=== PATIENT | male | born 1980 | race African-American/Black ===

== ENCOUNTER 2016-07-12 20:23 | Emergency (ER) | payer BC | END 2016-07-12 20:42 | disposition left against medical advice (07) | LOC: UCEAST 20:23 | DX: Z11.3 Encounter for screening for infections with a predominantly sexual mode of transmission (principal); Z53.21 Procedure and treatment not carried out due to patient leaving prior to being seen by health care provider ==

== ENCOUNTER 2016-07-13 20:26 | Emergency (ER) | payer BC ==
[2016-07-13 21:11] VITALS: BP 145/91
--- NOTE | 2016-07-13 22:57 | UC ---
Complaint Male HPI - HPI Summary HPI Summary: The patient comes in today for: 1. Dysuria/clear discharge Onset: 4 days ago. Palliative/provocative: Urination makes it worse. Quality: Burning sensation. Region: Penis towards the tip but at times the whole length. Severity: Resting, now: 0/10 Associated symptoms: Fever: None. Last sexual encounter: July 06. Two days later, he had onset of dysuria and clear discharge. He was seen at [facility] and urine test taken for GC/ Chlamydia. He was treated with "a shot and 4 pills." Since then, the dysuria is now towards the end of the penis. The clear discharge is better. * - History of Current Complaint Chief Complaint: UCGU Stated Complaint: STD CHECK Time Seen by Provider: 07/13/16 22:36 Hx Obtained From: Patient - Allergies/Home Medications Allergies/Adverse Reactions: Allergies Allergy/AdvReac Type Severity Reaction Status Date / Time No Known Allergies Allergy Verified 07/13/16 21:12 Home Medications: Home Medications Lisinopril/HCTZ (NF) [Zestoretic (NF)] 07/13/16 [History] PMH/Surg Hx/FS Hx/Imm Hx Previously Healthy: No Endocrine History Of: Denies: Diabetes, Thyroid Disease, Hyperthyroidism, Hypothyroidism, Dyslipidemia Cardiovascular History Of: Reports: Hypertension - borderline high b/p Denies: Cardiac Disorders, Pacemaker/ICD, Myocardial Infarction, Congestive Heart Failure, Atrial Fibrillation, Deep Vein Thrombosis, Bleeding Disorders Respiratory History Of: Denies: COPD, Asthma GI/ History Of: Denies: Gastroesophageal Reflux, Ulcer, Gastrointestinal Bleed, Gall Bladder Disease, Kidney Stones, Diverticulitis, Renal Disease, Urosepsis Neurological History Of: Denies: TIA, CVA, Dementia, Seizures, Migraine Psychological History Of: Denies: Anxiety, Depression, Bipolar Disorder, Schizophrenia, Post Traumatic Stress Disorder Cancer History Of: Denies: Lung Cancer, Colorectal Cancer, Breast Cancer, Prostate Cancer, Cervical Cancer Other History Of: Negative For: HIV, Hepatitis B, Hepatitis C - Surgical History Surgical History: Yes Surgery Procedure, Year, and Place: 2009 right shoulder surgery [facility] - Family History Known Family History: Positive: Hypertension Negative: Cardiac Disease Family History: NON CONTRIBUTORY - Social History Occupation: Employed Full-time Alcohol Use: Occasionally Alcohol Amount: 2-3 DRINKS/WEKEND Substance Use Type: None Smoking Status (MU): Former Smoker Amount Used/How Often: 1 PPWEEK/ 2 YEARS Have You Smoked in the Last Year: No When Did the Patient Quit Smoking/Using Tobacco: 1999 Review of Systems Constitutional: Negative Skin: Negative Eyes: Negative ENT: Negative Respiratory: Negative Cardiovascular: Negative Gastrointestinal: Negative Genitourinary: Dysuria, Other - No recent ejactulation to check for hematospermia. All Other Systems Reviewed And Are Negative: Yes Physical Exam Triage Information Reviewed: Yes Appearance: Well-Appearing, No Pain Distress, Well-Nourished, Other: - The patient was texting during my whole history and examination. He seemed to only be 1/2 present during the exam. Vital Signs: Initial Vital Signs Temp 97.5 F 07/13/16 21:07 Pulse 91 07/13/16 21:07 Resp 12 07/13/16 21:07 BP 145/91 07/13/16 21:07 Pulse Ox 97 07/13/16 21:07 Vital Signs Reviewed: Yes Eyes: Positive: Conjunctiva Clear. Negative: Discharge ENT: Positive: Hearing grossly normal, Other: - Ears: Canal no edema or erythema.. Negative: Pharyngeal erythema, Nasal congestion, Nasal drainage, Tonsillar swelling, Tonsillar exudate Dental: Negative: Gross Decay/Caries @, Dental Fracture @ Neck: Positive: Supple, Nontender, No Lymphadenopathy. Negative: Nuchal Rigidity Respiratory: Positive: Chest non-tender, Lungs clear, No respiratory distress, No accessory muscle use. Negative: Crackles, Wheezing Cardiovascular: Positive: RRR, No Murmur Abdomen Description: Positive: Nontender, No Organomegaly, Soft Musculoskeletal: Positive: Strength Intact, ROM Intact, No Edema Neurological: Positive: Alert, Muscle Tone Normal Psychological: Positive: Age Appropriate Behavior, Consolable Skin: Negative: rashes, breakdown UC Physical Exam Vital Signs On Initial Exam: Initial Vitals Temp Pulse Resp BP Pulse Ox 97.5 F 91 12 145/91 97 07/13/16 21:07 07/13/16 21:07 07/13/16 21:07 07/13/16 21:07 07/13/16 21:07 - Genitalia Exam Male Genitalia: Circumcised, Other - Penis: Circumcised. No masses, no discharge even with milking, no lesions Scrotum: Testes down bilaterally, no masses or tenderness. Complaint Male Course/Dx - Differential Dx/Diagnosis Differential Diagnosis/HQI/PQRI: Epididymitis, Prostatitis Provider Diagnoses: urethritis (previously treated for GC/chlamydia) at [facility]. Discharge - Discharge Plan Condition: Stable Disposition: HOME Patient Education Materials: Urinary Tract Infection in Men (ED) Referrals: Shoaib Engle MD [Primary Care Provider] - If Needed Additional Instructions: If you don't continue to improve, please see your primary care provider.
== END 2016-07-13 23:43 | disposition home or self-care (01) ==
LOC: UCEAST 20:26
DX: N34.2 Other urethritis (principal); I10 Essential (primary) hypertension; Z87.891 Personal history of nicotine dependence
CPT/HCPCS: 87798; 99211; G0463

== ENCOUNTER 2018-03-04 13:20 | Emergency (ER) | payer BC ==
--- OUTSIDE RECORDS SUMMARY | 2018-03-04 13:25 | XMS REPORT | Continuity of Care Document ---
:1980 External Reference #:[id number] Author Name Jm Salcedo M.D. Address [address] [place] [address] Care Team Providers Name Role Phone Shoaib Engle MD Care Team Information Religious Education Director Unavailable Shoaib Engle MD Primary Care Physician Unavailable Payers Type Date Identification Numbers Payment Provider Subscriber Onset: 2013 Policy Number: [id number] [employer] Jona Oleary PayID: [id number] [address] [place] [address] Onset: 2007 Policy Number: [id number] [employer] Jona Oleary [address] [place] [address] Advance Directives Description No Information Available Problems Date Description Provider Status Onset: 11/29/2013 Foreign body in conjunctival sac Jm Salcedo M.D. Active Onset: 11/29/2013 Superficial injury of cornea Jm Salcedo M.D. Active Onset: 10/23/2014 Corneal foreign body Jm Salcedo M.D. 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 Family History Date Family Member(s) Problem(s) Comments Father Noncontributory Mother Diabetes Mother High BP Social History Type Date Description Comments Sex Unknown ETOH Use Currently consumes alcohol Tobacco Use Start: Unknown Patient has never smoked Smoking Status Reviewed: 02/07/18 Patient has never smoked Allergies, Adverse Reactions, Alerts Description No Known Drug Allergies Medications Medication Date Status Form Strength Qnty SIG Indications Ordering Provider No Active Active Unknown Medications 018 No Active Hx Unknown Medications 018 - 018 Tobramycin Hx Solution 0.3% 5ml one drop Edwin 018 - four Greene, OD times a 018 day left eye x 1 week Refresh P.M. Hx Ointment 3.500gm 04/06" Edwin 018 - ribbon Jc, OD applied 018 to ocular surface every night at bedtime both eyes Moxifloxacin Hx Solution 0.5% 3ml 1 drop Edwin HCL 018 - left eye Jc, OD qid x 1 018 week No Active Hx Unknown Medications 016 - 018 No Active Hx Unknown Medications 016 - 016 Ciloxan Hx Solution 0.3% 5ml 1 drop H18.831 Jm 016 - right eye Salcedo, three M.D. 016 times a day No Active Hx Unknown Medications 015 - 015 No Active Hx Peter Medications 014 - Salcedo, M.D. 014 Immunizations Description No Information Available Vital Signs Description No Information Available Results Description No Information Available Procedures Date Code Description Status 02/07/2018 29036 Eye Exam Est Intermediate Completed 01/09/2018 41891 Fitting Of Contact Lens For Treatment Of Ocular Surface Completed Disease 08/15/2017 52773 Fitting Of Contact Lens For Treatment Of Ocular Surface Completed Disease 08/15/2017 36847 Fitting Of Contact Lens For Treatment Of Ocular Surface Completed Disease 08/15/2017 97862 Eye Exam Est Intermediate Completed 08/15/2017 30628 Eye Exam New Intermediate Completed 09/16/2015 19017 Eye Exam Est Intermediate Completed 09/16/2015 01935 Eye Exam Est Intermediate Completed 08/28/2015 45474 Eye Exam Est Intermediate Completed 08/28/2015 39092 Eye Exam Est Intermediate Completed 08/26/2015 90872 Eye Exam Est Intermediate Completed 08/26/2015 27598 Eye Exam Est Intermediate Completed 08/24/2015 25309 Eye Exam Est Intermediate Completed 08/24/2015 47312 Eye Exam Est Intermediate Completed 08/24/2015 67614 Contact Lens Fitting For TX Of Disease Completed 08/24/2015 62870 Contact Lens Fitting For TX Of Disease Completed 10/23/2014 97122 Remove Foreign Body Cornea W/ Slit Lamp Completed 10/23/2014 91783 Remove Foreign Body Conjunctiva Superficial Completed 08/21/2014 61343 Eye Exam Est Intermediate Completed 11/29/2013 39834 Eye Exam Est Intermediate Completed 11/29/2013 73563 Remove Foreign Body Conjunctiva Superficial Completed 04/08/2011 22782 Remove Foreign Body Conjunctiva Superficial Completed 04/08/201131794 Eye Exam Est Intermediate Completed 02/23/201149362 Eye Exam Est Intermediate Completed 02/21/2011 Eye Exam Est Intermediate Completed 02/21/2011 98682 Remove Foreign Body Cornea W/ Slit Lamp Completed 05/14/2010 Eye Exam Est Intermediate Completed 05/12/2010 Eye Exam Est Intermediate Completed 12/05/2007 Eye Exam Est Intermediate Completed 11/30/2007 Eye Exam Est Intermediate Completed 11/30/2007 16485 Remove Foreign Body Cornea W/ Slit Lamp Completed Encounters Type Date Location Provider Dx Diagnosis Office Visit 01/09/2018 Main Office Edwin Greene, OD 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
--- OUTSIDE RECORDS SUMMARY | 2018-03-04 13:25 | XMS REPORT | Continuity of Care Document ---
:1980 External Reference #:[id number] Author Name Jm Salcedo M.D. Address [address] [place] [address] Care Team Providers Name Role Phone Shoaib Engle MD Care Team Information Roll Skinner Unavailable Shoaib Engle MD Primary Care Physician Unavailable Payers Type Date Identification Numbers Payment Provider Subscriber Onset: 2013 Policy Number: [id number] [employer] Jona Oleary PayID: [id number] [address] [place] [address] Onset: 2007 Policy Number: [id number] [employer] Jona Oleary [address] [place] [address] Advance Directives Description No Information Available Problems [...] Patient has never smoked Smoking Status Reviewed: 02/14/18 Patient has never smoked Allergies, Adverse Reactions, [...] Information Available Procedures Date Code Description Status 02/14/2018 91900 Contact Lens Fitting For TX Of Disease Completed 02/14/2018 96583 Multiple Punctures Anterior Cornea Completed 02/07/2018 42432 Eye Exam Est Intermediate Completed 01/09/2018 32361 Fitting Of Contact Lens For Treatment Of Ocular Surface Completed Disease 08/15/2017 38001 Fitting Of Contact Lens For Treatment Of Ocular Surface Completed Disease 08/15/2017 74129 Fitting Of Contact Lens For Treatment Of Ocular Surface Completed Disease 08/15/2017 07840 Eye Exam Est Intermediate Completed 08/15/2017 15984 Eye Exam New Intermediate Completed 09/16/2015 31119 Eye Exam Est Intermediate Completed 09/16/2015 83373 Eye Exam Est Intermediate Completed 08/28/2015 89387 Eye Exam Est Intermediate Completed 08/28/2015 29414 Eye Exam Est Intermediate Completed 08/26/2015 71277 Eye Exam Est Intermediate Completed 08/26/2015 03886 Eye Exam Est Intermediate Completed 08/24/2015 86554 Eye Exam Est Intermediate Completed 08/24/2015 25473 Eye Exam Est Intermediate Completed 08/24/2015 65096 Contact Lens Fitting For TX Of Disease Completed 08/24/2015 39758 Contact Lens Fitting For TX Of Disease Completed 10/23/2014 09712 Remove Foreign Body Cornea W/ Slit Lamp Completed 10/23/2014 58611 Remove Foreign Body Conjunctiva Superficial Completed 08/21/2014 23545 Eye Exam Est Intermediate Completed 11/29/2013 83018 Eye Exam Est Intermediate Completed 11/29/2013 15499 Remove Foreign Body Conjunctiva Superficial Completed 04/08/2011 54246 Remove Foreign Body Conjunctiva Superficial Completed 04/08/2011 01645 Eye Exam Est Intermediate Completed 02/23/2011 14284 Eye Exam Est Intermediate Completed 02/21/2011 07232 Eye Exam Est Intermediate Completed 02/21/2011 16080 Remove Foreign Body Cornea W/ Slit Lamp Completed 05/14/2010 93716 Eye Exam Est Intermediate Completed 05/12/2010 08069 Eye Exam Est Intermediate Completed 12/05/200729670 Eye Exam Est Intermediate Completed 11/30/200702981 Eye Exam Est Intermediate Completed 11/30/2007 65963 Remove Foreign Body Cornea W/ Slit Lamp [...] of cornea, right eye Plan of Treatment 02/14/2018 - Jm Salcedo M.D.H18.832 Recurrent erosion of cornea, left eyeFollow up:2 d f/u
--- OUTSIDE RECORDS SUMMARY | 2018-03-04 13:25 | XMS REPORT | Continuity of Care Document ---
:1980 External Reference #:[id number] Author Name Jm Salcedo M.D. Address [address] [place] [address] Care Team Providers Name Role Phone Shoaib Engle MD Care Team Information Linesperson Unavailable Shoaib Engle MD Primary Care Physician Unavailable Payers Type Date Identification Numbers Payment Provider Subscriber Onset: 2013 Policy Number: [id number] [employer] Jona Oleary PayID: [id number] [address] [place] [address] Onset: 2007 Policy Number: [id number] [employer] Jona Oleary [address] [place] [address] Advance Directives Description No Information Available Problems [...] Patient has never smoked Smoking Status Reviewed: 02/16/18 Patient has never smoked Allergies, Adverse Reactions, [...] Available Procedures Date Code Description Status 02/14/2018 85098 Contact Lens Fitting For TX Of Disease Completed 02/14/2018 50483 Multiple Punctures Anterior Cornea Completed 02/07/2018 00842 Eye Exam Est Intermediate Completed 01/09/2018 53617 Fitting Of Contact Lens For Treatment Of Ocular Surface Completed Disease 08/15/2017 84179 Fitting Of Contact Lens For Treatment Of Ocular Surface Completed Disease 08/15/2017 21659 Fitting Of Contact Lens For Treatment Of Ocular Surface Completed Disease 08/15/2017 09867 Eye Exam Est Intermediate Completed 08/15/2017 59794 Eye Exam New Intermediate Completed 09/16/2015 54188 Eye Exam Est Intermediate Completed 09/16/2015 17374 Eye Exam Est Intermediate Completed 08/28/2015 31715 Eye Exam Est Intermediate Completed 08/28/2015 75028 Eye Exam Est Intermediate Completed 08/26/2015 02992 Eye Exam Est Intermediate Completed 08/26/2015 64683 Eye Exam Est Intermediate Completed 08/24/2015 31242 Eye Exam Est Intermediate Completed 08/24/2015 06424 Eye Exam Est Intermediate Completed 08/24/2015 65880 Contact Lens Fitting For TX Of Disease Completed 08/24/2015 02321 Contact Lens Fitting For TX Of Disease Completed 10/23/2014 82777 Remove Foreign Body Cornea W/ Slit Lamp Completed 10/23/2014 63522 Remove Foreign Body Conjunctiva Superficial Completed 08/21/2014 32949 Eye Exam Est Intermediate Completed 11/29/2013 43682 Eye Exam Est Intermediate Completed 11/29/2013 35201 Remove Foreign Body Conjunctiva Superficial Completed 04/08/2011 68695 Remove Foreign Body Conjunctiva Superficial Completed 04/08/2011 45755 Eye Exam Est Intermediate Completed 02/23/2011 57019 Eye Exam Est Intermediate Completed 02/21/2011 88976 Eye Exam Est Intermediate Completed 02/21/2011 74185 Remove Foreign Body Cornea W/ Slit Lamp Completed 05/14/2010 50588 Eye Exam Est Intermediate Completed 05/12/2010 91117 Eye Exam Est Intermediate Completed 12/05/200777941 Eye Exam Est Intermediate Completed 11/30/200793145 Eye Exam Est Intermediate Completed 11/30/2007 55424 Remove Foreign Body Cornea W/ Slit Lamp [...] of cornea, right eye Plan of Treatment 02/16/2018 - Jm Salcedo M.D.H18.832 Recurrent erosion of cornea, left eyeFollow up:2 wk f/u + refraction
[2018-03-04 13:49] VITALS: BP 150/88
--- NOTE | 2018-03-04 14:29 | UC ---
Complaint Male HPI - HPI Summary HPI Summary: Pat reports pain lower abdomen and scrotum for 3 days. occurred after shoveling last week denies penile d/c or dysuria - History of Current Complaint Chief Complaint: UCAbdominalPain Stated Complaint: ABDOMINAL COMPLAINT Time Seen by Provider: 03/04/18 13:58 Hx Obtained From: Patient Onset/Duration: Sudden Onset Timing: Constant Severity Initially: Mild Severity Currently: Moderate Pain Intensity: 5 Location: Groin Aggravating Factor(s): Other - pressure Associated Signs And Symptoms: Positive: Negative, Back Pain - low back after shoveling. Negative: Hematuria, Dysuria, Constipation, Nausea - Allergies/Home Medications Allergies/Adverse Reactions: Allergies Allergy/AdvReac Type Severity Reaction Status Date / Time No Known Allergies Allergy Verified 03/04/18 13:49 Home Medications: Home Medications NK [No Home Medications Reported] 03/04/18 [History Confirmed 03/04/18] PMH/Surg Hx/FS Hx/Imm Hx Previously Healthy: Yes Other History Of: Negative For: HIV, Hepatitis B, Hepatitis C - Surgical History Surgical History: Yes Surgery Procedure, Year, and Place: 2009 right shoulder surgery [facility] [place] - Family History Known Family History: Positive: None, Hypertension Negative: Cardiac Disease Family History: NON CONTRIBUTORY - Social History Occupation: Employed Full-time Lives: With Family Alcohol Use: Occasionally Alcohol Amount: 2-3 DRINKS/WEKEND Substance Use Type: None Smoking Status (MU): Former Smoker Amount Used/How Often: 1 PPWEEK/ 2 YEARS Have You Smoked in the Last Year: No When Did the Patient Quit Smoking/Using Tobacco: 1999 Review of Systems All Other Systems Reviewed And Are Negative: Yes Constitutional: Positive: Negative. Negative: Fever Skin: Positive: Negative. Negative: Rash Respiratory: Positive: Negative Cardiovascular: Positive: Negative Gastrointestinal: Positive: Abdominal Pain - groin area Genitourinary: Positive: Ulceration/Lesion - feels painful lump on R testicle. Negative: Dysuria, Hematuria, Frequency, Vaginal/Penile Burning, Vaginal/Penile Itching, Vaginal/Penile Discharge Neurological: Positive: Negative Psychological: Positive: Negative Is Patient Immunocompromised?: No Physical Exam Triage Information Reviewed: Yes Appearance: Well-Appearing, No Pain Distress, Well-Nourished Vital Signs: Initial Vital Signs Temp 99.0 F 03/04/18 13:44 Pulse 95 03/04/18 13:44 Resp 18 03/04/18 13:44 BP 150/88 03/04/18 13:44 Pulse Ox 98 03/04/18 13:44 Vital Signs Reviewed: Yes Respiratory Exam: Normal Cardiovascular Exam: Normal Abdomen Description: Positive: Nontender, No Organomegaly, Soft. Negative: Hernia @, Peritoneal Signs Bowel Sounds: Positive: Present Male Genital Exam: Positive: Other - grape sized painful, firm lesion at 7 o' clock R testicle. difficult exam d/t pain. Negative: Hernia Mass, Inguinal Tenderness, Scrotum Tenderness (R) Musculoskeletal Exam: Normal Neurological Exam: Normal Psychological Exam: Normal Skin Exam: Normal Skin: Negative: Rashes Complaint Male Course/Dx - Differential Dx/Diagnosis Differential Diagnosis/HQI/PQRI: Epididymitis, Cancer, Other - hernia Provider Diagnosis: Mass of right testicle - Physician Notifications Discussed Patient Care With: Edgard Russ Time Discussed With Above Provider: 02:25 - agrees to send pt to ER for U/S Discharge - Sign-Out/Discharge Documenting (check all that apply): Patient Departure All imaging exams completed and their final reports reviewed: No Studies - Discharge Plan Condition: Stable Disposition: HOME Patient Education Materials: Testicle Pain (ED) Forms: *School Release Referrals: Shoaib Engle MD [Primary Care Provider] - Additional Instructions: please go directly to [facility] emergency room now for further evaluation - Billing Disposition and Condition Condition: STABLE Disposition: Home
== END 2018-03-04 14:32 | disposition home or self-care (01) ==
LOC: UCEAST 13:20
DX: N50.89 Other specified disorders of the male genital organs (principal); Z87.891 Personal history of nicotine dependence
CPT/HCPCS: 99212; G0463

== ENCOUNTER 2018-03-04 14:55 | Emergency (ER) | payer BC ==
--- NOTE | 2018-03-04 17:58 | ED ---
GI/ HPI - HPI Summary HPI Summary: A 38 y/o male presents to [facility] with a chief complaint of right testicle pain since 03/02/18. He states that touching it causes some abd and lower back pain. He denies redness, swelling, dysuria and hematuria. He claims that he is sexually active with a partner. He reports that he has had similar symptoms before with a UTI. - History of Current Complaint Chief Complaint: EDUrogenitalProblems Time Seen by Provider: 03/04/18 17:16 Stated Complaint: GROIN PAIN Hx Obtained From: Patient Onset/Duration: Started Days Ago, Still Present Timing: Constant Severity: Moderate Current Severity: Moderate Pain Intensity: 5 Additional Locations for Males: Testicles - right Pain Radiates to: Back, LLQ, RLQ Associated Signs and Symptoms: Positive: Back Pain - lower, Abdominal Pain. Negative: Hematuria, Dysuria, Other: - redness swelling - Allergy/Home Medications Allergies/Adverse Reactions: Allergies Allergy/AdvReac Type Severity Reaction Status Date / Time No Known Allergies Allergy Verified 03/04/18 15:02 PMH/Surg Hx/FS Hx/Imm Hx Endocrine/Hematology History: Denies: Hx Diabetes, Hx Thyroid Disease Cardiovascular History: Reports: Hx Hypertension - borderline high b/p Denies: Hx Congestive Heart Failure, Hx Deep Vein Thrombosis, Hx Myocardial Infarction, Hx Pacemaker/ICD Respiratory History: Reports: Hx Sleep Apnea - Hx OF, LOSS 30 POUNDS SINCE, NO CPAP Denies: Hx Asthma, Hx Chronic Obstructive Pulmonary Disease (COPD), Hx Lung Cancer GI History: Denies: Hx Gall Bladder Disease, Hx Gastrointestinal Bleed, Hx Ulcer, Hx Urosepsis History: Denies: Hx Kidney Stones, Hx Renal Disease Neurological History: Denies: Hx Dementia, Hx Migraine, Hx Seizures, Hx Transient Ischemic Attacks (TIA) Psychiatric History: Denies: Hx Anxiety, Hx Depression, Hx Schizophrenia, Hx Bipolar Disorder - Surgical History Surgery Procedure, Year, and Place: 2009 right shoulder surgery [facility] [place] Hx Anesthesia Reactions: No Infectious Disease History: No Infectious Disease History: Denies: Hx Clostridium Difficile, Hx Hepatitis, Hx Human Immunodeficiency Virus (HIV), Hx of Known/Suspected MRSA, Hx Shingles, Hx Tuberculosis, Hx Known/ Suspected VRE, Hx Known/Suspected VRSA, History Other Infectious Disease, Traveled Outside the [place] in Last 30 Days - Family History Known Family History: Positive: Hypertension Negative: Cardiac Disease - Social History Alcohol Use: Rare Alcohol Amount: 2-3 DRINKS/WEKEND Hx Substance Use: No Substance Use Type: Reports: None Hx Tobacco Use: No Smoking Status (MU): Former Smoker Amount Used/How Often: 1 PPWEEK/ 2 YEARS Have You Smoked in the Last Year: No Review of Systems Positive: Abdominal Pain - radiating from right testicle Positive: pain - right testicle. Negative: dysuria, hematuria Positive: Myalgia - lower back pain radiating from right testicle. Negative: Edema - right testicle Skin: Negative - right testicle redness All Other Systems Reviewed And Are Negative: Yes Physical Exam - Summary Physical Exam Summary: Appearance: The patient is well-nourished in no acute distress and in no acute pain. Skin: The skin is warm and dry and skin color reflects adequate perfusion. HEENT: The head is normocephalic and atraumatic. The pupils are equal and reactive. The conjunctivae are clear and without drainage. Nares are patent and without drainage. Mouth reveals moist mucous membranes and the throat is without erythema and exudate. The external ears are intact. The ear canals are patent and without drainage. The tympanic membranes are intact. Neck: The neck is supple with full range of motion and non-tender. There are no carotid bruits. There is no neck vein distension. Respiratory: Chest is non-tender. Lungs are clear to auscultation and breath sounds are symmetrical and equal. Cardiovascular: Heart is regular rate and rhythm. There is no murmur or rub auscultated. There is no peripheral edema and pulses are symmetrical and equal. Abdomen: The abdomen is soft and non-tender. There are normal bowel sounds heard in all four quadrants and there is no organomegaly palpated. Musculoskeletal: There is no back tenderness noted. Extremities are non-tender with full range of motion. There is good capillary refill. There is no peripheral edema or calf tenderness elicited. Neurological: Patient is alert and oriented to person, place and time. The patient has symmetrical motor strength in all four extremities. Cranial nerves are grossly intact. Deep tendon reflexes are symmetrical and equal in all four extremities. Psychiatric: The patient has an appropriate affect and does not exhibit any anxiety or depression. GI: tender epididymis on right, Intact cremaster reflex Triage Information Reviewed: Yes Vital Signs On Initial Exam: Initial Vitals Temp Pulse Resp BP Pulse Ox 97.7 F 90 16 147/86 97 03/04/18 15:02 03/04/18 15:02 03/04/18 15:02 03/04/18 15:02 03/04/18 15:02 Vital Signs Reviewed: Yes Diagnostics - Vital Signs Vital Signs Temp Pulse Resp BP Pulse Ox 03/04/18 17:42 91 158/98 97 03/04/18 15:02 97.7 F 90 16 147/86 97 - Laboratory Lab Statement: Any lab studies that have been ordered have been reviewed, and results considered in the medical decision making process. - Ultrasound No standard instances Ultrasound Interpretation Completed By: Radiologist Summary of Ultrasound Findings: Testicular US impression: 1. Findings suggestive of acute right epididymitis. 2. No evidence for testicular torsion. 3. Small left varicocele. ED physician has reviewed this imaging report. GIGU Course/Dx - Course Course Of Treatment: Mr. Oleary presented with pain in his right testicle as well as a tenderness and hard area behind it. He has a history of epididymitis and on exam he had a tender epididymis on the right and an intact cremasteric reflex. Ultrasound was obtained nevertheless and confirmed the diagnosis. UA was negative and the urine was sent for GC and Chlamydia. He'll be treated with Rocephin here and a prescription for doxycycline. - Diagnoses Provider Diagnoses: Epididymitis Discharge - Sign-Out/Discharge Documenting (check all that apply): Patient Departure - DC - Discharge Plan Condition: Stable Disposition: HOME Prescriptions: DOXYcycline CAP(*) [DOXYcycline 100MG CAP(*)] 100 mg PO BID #20 cap Patient Education Materials: Epididymitis (ED) Referrals: Shoaib Engle MD [Primary Care Provider] - (2-3 days) Additional Instructions: Folllow up with your PCP in 2-3 days. Return to the ED if you experience any new or worsening symptoms. - Billing Disposition and Condition Condition: STABLE Disposition: Home - Attestation Statements Document Initiated by Scribe: Yes Documenting Scribe: Dannie Jacobo Provider For Whom Scribe is Documenting (Include Credential): Elliott Rinaldi MD Scribe Attestation: Dannie Mayer, scribed for Elliott Rinaldi MD on 03/04/18 at 2151. Scribe Documentation Reviewed: Yes Provider Attestation: The documentation as recorded by the scribe, Dannie Jacobo accurately reflects the service I personally performed and the decisions made by me, Elliott Rinaldi MD Status of Scribe Document: Viewed
[2018-03-04 18:18] LABS: Urine Appearance Cloudy; Urine Blood Negative (Negative); Urine Color Yellow; Urine Ketones Negative (Negative); Urine Protein Negative (Negative); Urine Specific Gravity 1.031 (1.010-1.030); Urine Urobilinogen Negative (Negative)
[2018-03-04] MEDS ORDERED: cefTRIAXone VIAL(*) 250 MG VIAL IM ONE (20:17)
[2018-03-04] MEDS ORDERED: Sterile Water for Inj* 10 ML ONE (20:43)
[2018-03-04 21:00] VITALS: BP 148/99
== END 2018-03-04 21:08 | disposition home or self-care (01) ==
LOC: ED 14:55
DX: N45.1 Epididymitis (principal); I86.1 Scrotal varices; Z87.891 Personal history of nicotine dependence
CPT/HCPCS: 76870; 81003; 96372; 99283; J0696